=== PATIENT | female | born 1960 | race Caucasian/White ===

== ENCOUNTER 2017-11-13 07:16 | Emergency (ER) | payer SELFPAY ==
[~2017-11-13] VITALS: Ht 157.5 cm; Wt 111.2 kg
[2017-11-13 07:23] VITALS: Ht 157.5 cm; Wt 111.2 kg
[2017-11-13] MEDS ORDERED: HYDROCODONE/HOMATROPINE SYRUP 5MG/1.5MG 5ML UDP PO STA (07:52)
[2017-11-13] MEDS ORDERED: KETOROLAC TROMETHAMINE 30 MG/ML VIAL IV STA (07:52)
[2017-11-13] MEDS ORDERED: SODIUM CHLORIDE 0.9% 1000ML 1,000 ML IV STA (07:52)
[2017-11-13 08:33] LABS: BASO % 0.3 %; BASO ABS # 0.03 K/uL (0-0.2); HEMATOCRIT 44.6 % (37-47); HEMOGLOBIN 15.2 g/dL (12.0-16.0); IG# 0.01 K/uL (0.00-0.02); LYMPH % 10.7 %; MEAN CELL VOLUME 89.2 fL (80-100); MEAN CORPUSCULAR HEMOGLOBIN 30.4 pg (25-34); MEAN CORPUSCULAR HGB CONC 34.1 g/dl (32-36); MEAN PLATELET VOLUME 11.3 fL (7.4-10.4); MONO % 6.7 %; MONO ABS # 0.63 K/uL (0.11-0.59); NEUT % 82.2 %; PLATELET COUNT 156 K/uL (130-400); RED CELL DISTRIBUTION WIDTH CV 14.1 % (11.5-14.5); RED CELL DISTRIBUTION WIDTH SD 46.3 fL (36.4-46.3); WHITE BLOOD COUNT 9.37 K/uL (4.8-10.8)
--- NOTE | 2017-11-13 08:38 | DIAGNOSTIC IMAGING REPORT ---
CHEST 2 VIEWS ROUTINE CLINICAL HISTORY: Cough and fever. COMPARISON STUDY: No previous studies for comparison. FINDINGS: The lung volumes are normal. There is moderate airspace opacity within the posterior segment of the right upper lobe. No cavitation or pleural effusion is noted. There is mild diffuse interstitial thickening. There is no pneumothorax. A lucent lesion within the distal right clavicle is likely benign. Cardiac size is at the upper limits of normal. Mediastinal contours are unremarkable. IMPRESSION: Moderate consolidation within the posterior segment of the right upper lobe suggestive of pneumonia. Post treatment radiographs to ensure resolution are recommended. Electronically signed by: Cale Donovan M.D. 11/13/2017 8:37 AM Dictated Date/Time: 11/13/2017 8:36 AM
[2017-11-13 08:52] VITALS: TEMP 37.5
[2017-11-13 08:56] LABS: ALBUMIN 3.3 gm/dl (3.4-5.0); CALCIUM 9.3 mg/dl (8.5-10.1); CREATININE 1.4 mg/dl (0.60-1.20)
[2017-11-13 08:59] LABS: TOTAL PROTEIN 8.2 gm/dl (6.4-8.2)
[2017-11-13] MEDS ORDERED: AZITHROMYCIN 250 MG TAB PO ONE (09:00)
[2017-11-13] MEDS ORDERED: ALBUTEROL HFA 8 GM INHALER INH ONE (09:00)
[2017-11-13 09:25] LABS: POTASSIUM 3.8 mmol/L (3.5-5.1)
[2017-11-13] MEDS ORDERED: HYDR5SYP11 PO (09:54)
[2017-11-13] MEDS ORDERED: AZIT-60 PO (09:54)
--- NOTE | 2017-11-13 09:55 | EMERGENCY ROOM VISIT NOTE ---
History First contact with patient: 07:30 Chief Complaint: SORETHROAT Stated Complaint: SORE THROAT,EARS,RIBS,COUGH History of Present Illness Patient is a 57-year-old white female who presents to emergency department, he by her for evaluation of an illness over the last week and a half. She states she began to feel ill about a week and a half ago, and in the end of October. She states that it began with some nasal congestion and just generalized malaise. The symptoms persisted until this past week until 3-4 days ago, she developed diarrhea, which has subsequently tapered off. 2 days ago she began to experience ear pain and a sore throat. She has a cough and she has some soreness in her ribs from coughing. She has subjectively felt feverish and had chills but has not recorded her temperature with a thermometer. She states that her abdomen is sore, she is nauseous and anorexic. She has had dry heaves on occasion but has not vomited. She is tried taking Tylenol and NyQuil for her symptoms. She watches her grandchildren who have been sick and it had been diagnosed with strep throat recently. She presented to the emergency department this morning because of her ear and throat pain. She did not receive a flu shot this year. She is a smoker. Review of Systems Review of systems as per HPI. All other systems reviewed were negative. 10 systems reviewed. Past Medical/Surgical History Medical Problems: (1) Calculus Of Kidney (2) Hyperparathyroidism Surgical Problems: (1) History of parathyroidectomy Electronic medical records are reviewed and summarized as above/below. See Problem List. Social History Smoking Status: Current Every Day Smoker Marital Status: Housing Status: lives with family Occupation Status: unemployed Current/Historical Medications Scheduled Azithromycin (Zithromax), 250 MG PO DAILY Scheduled PRN Hydrocodone W/ Homatropine (Hycodan 5/1.5MG 5 Ml), 10 ML PO Q4H PRN for Cough Physical Exam Vital Signs Date Time Temp Pulse Resp B/P (MAP) Pulse Ox O2 Delivery O2 Flow Rate FiO2 11/13/17 10:28 67 20 99/56 90 11/13/17 09:01 85 20 104/65 90 Room Air 11/13/17 08:52 37.5 11/13/17 08:23 Room Air 11/13/17 07:23 37.6 94 20 124/71 92 Room Air Physical Exam MENTAL STATUS: Patient is an ill although nontoxic-appearing 57-year-old white female who is awake and alert and in no acute distress. Temperature 37.6C orally. HEAD: Atraumatic, without temporal or scalp tenderness. EYES: PERRL, EOMI, no discharge or injection. EARS: Tympanic membranes intact, not inflamed, have normal contour. External canals clear. Right ear partially obscured by cerumen. NOSE: Nares patent, turbinates edematous and boggy with clear rhinorrhea. MOUTH: Mucous membranes moist, no lesions, tongue and gums appear normal. THROAT: No pharyngeal injection, exudates, or tonsillar hypertrophy. She does have some shallow ulcerations on the soft palate. Airway is patent. NECK: No bruits auscultated. No nuchal rigidity. Supple, nontender, no lymphadenopathy. HEART: Regular rate and rhythm without murmurs, ectopy, gallops, or rubs. LUNGS: Clear to auscultation and breath sounds equal, no wheezes, rales, or rhonchi. ABDOMEN: Bowel sounds are present. Abdomen is soft, nontender and nondistended. SKIN: Normal. NEUROLOGICAL: Sensory and motor functions grossly intact. Normal gait. Medical Decision & Procedures ER Provider Diagnostic Interpretation: CHEST 2 VIEWS ROUTINE CLINICAL HISTORY: Cough and fever. COMPARISON STUDY: No previous studies for comparison. FINDINGS: The lung volumes are normal. There is moderate airspace opacity within the posterior segment of the right upper lobe. No cavitation or pleural effusion is noted. There is mild diffuse interstitial thickening. There is no pneumothorax. A lucent lesion within the distal right clavicle is likely benign. Cardiac size is at the upper limits of normal. Mediastinal contours are unremarkable. IMPRESSION: Moderate consolidation within the posterior segment of the right upper lobe suggestive of pneumonia. Post treatment radiographs to ensure resolution are recommended. Laboratory Results 11/13/17 08:20 Red Blood Count 5.00, Mean Corpuscular Volume 89.2, Mean Corpuscular Hemoglobin 30.4, Mean Corpuscular Hemoglobin Concent 34.1, Mean Platelet Volume 11.3, Neutrophils (%) (Auto) 82.2, Lymphocytes (%) (Auto) 10.7, Monocytes (%) (Auto) 6.7, Eosinophils (%) (Auto) 0.0, Basophils (%) (Auto) 0.3, Neutrophils # (Auto) 7.70, Lymphocytes # (Auto) 1.00, Monocytes # (Auto) 0.63, Eosinophils # (Auto) 0.00, Basophils # (Auto) 0.03 11/13/17 08:20 11/13/17 09:04 Test 11/13/17 08:20 11/13/17 09:04 White Blood Count 9.37 K/uL (4.8-10.8) Red Blood Count 5.00 M/uL (4.2-5.4) Hemoglobin 15.2 g/dL (12.0-16.0) Hematocrit 44.6 % (37-47) Mean Corpuscular Volume 89.2 fL (80-100) Mean Corpuscular Hemoglobin 30.4 pg (25-34) Mean Corpuscular Hemoglobin Concent 34.1 g/dl (32-36) Platelet Count 156 K/uL (130-400) Mean Platelet Volume 11.3 fL (7.4-10.4) Neutrophils (%) (Auto) 82.2 % Lymphocytes (%) (Auto) 10.7 % Monocytes (%) (Auto) 6.7 % Eosinophils (%) (Auto) 0.0 % Basophils (%) (Auto) 0.3 % Neutrophils # (Auto) 7.70 K/uL (1.4-6.5) Lymphocytes # (Auto) 1.00 K/uL (1.2-3.4) Monocytes # (Auto) 0.63 K/uL (0.11-0.59) Eosinophils # (Auto) 0.00 K/uL (0-0.5) Basophils # (Auto) 0.03 K/uL (0-0.2) RDW Standard Deviation 46.3 fL (36.4-46.3) RDW Coefficient of Variation 14.1 % (11.5-14.5) Immature Granulocyte % (Auto) 0.1 % Immature Granulocyte # (Auto) 0.01 K/uL (0.00-0.02) Anion Gap 6.0 mmol/L (3-11) Est Creatinine Clear Calc Drug Dose 53.4 ml/min Estimated GFR () 48.9 Estimated GFR (Non- 42.2 BUN/Creatinine Ratio 13.5 (10-20) Calcium Level 9.3 mg/dl (8.5-10.1) Total Bilirubin 0.6 mg/dl (0.2-1) Alanine Aminotransferase (ALT/SGPT) 38 U/L (12-78) Alkaline Phosphatase 99 U/L (45-117) Total Protein 8.2 gm/dl (6.4-8.2) Albumin 3.3 gm/dl (3.4-5.0) Globulin 4.9 gm/dl (2.5-4.0) Albumin/Globulin Ratio 0.7 (0.9-2) Aspartate Amino Transf (AST/SGOT) 23 U/L (15-37) Medications Administered Medications (Trade) Dose Ordered Sig/Uri Route Start Time Stop Time Status Last Admin Dose Admin Sodium Chloride 1,000 ml @ 999 mls/hr Q1H1M STAT IV 11/13/17 07:52 11/13/17 08:52 DC 11/13/17 08:15 999 MLS/HR Ketorolac Tromethamine (Toradol Inj) 30 mg NOW STAT IV 11/13/17 07:52 11/13/17 07:57 DC 11/13/17 08:14 30 MG Hydrocodone Bit/ Homatropine Methylb (Hycodan Syrup) 10 ml NOW STAT PO 11/13/17 07:52 11/13/17 07:57 DC 11/13/17 08:13 10 ML Albuterol (Ventolin Hfa Inhaler) 2 puffs NOW ONCE INH 11/13/17 09:00 11/13/17 09:01 DC 11/13/17 09:12 2 PUFFS Azithromycin (Zithromax Tab) 500 mg NOW ONCE PO 11/13/17 09:00 11/13/17 09:01 DC 11/13/17 09:12 500 MG ED Course The patient was seen and evaluated as above. She presents to the emergency department for evaluation of week and a half of upper respiratory symptoms that have been present restively worsening. She does have a low-grade fever on presentation, otherwise his vital signs are stable. She is not tachypneic, oxygen saturations are adequate on room air. IV lock was initiated. She was given a liter bolus of normal saline solution. Rapid strep was performed and was negative, backup cultures are pending. CBC with differential and CMP were drawn. She was given Toradol 30 mg IV for her headache and myalgias, as well as her low-grade fever, and was given Hycodan 10 mL's orally for her cough. Chest x-ray was performed. Laboratory studies noted a normal white count at 9300, H&H is normal. Electrolytes are without significant abnormality, BUN and creatinine slightly elevated at 19 and 1.4 respectively. LFTs are normal. Urine dip noted trace blood only, no other indicators for infection. Chest x-ray was obtained and was concerning for her minor consolidation within the right upper lobe suggestive of pneumonia. The patient was made aware of the results of her ED workup. She did report improvement in her headache with the IV fluids and Toradol, cough had improved with the Hycodan. Vital signs were rechecked, and temperature was 37.5C orally. The patient was given azithromycin 500 mg orally for pneumonia, and given an albuterol inhaler with a spacer and instructed on its use. Treatment options were discussed with the patient, and at this point it was felt that she was appropriate for outpatient treatment. She will continue her current medications, use the albuterol as discussed, Hycodan as needed for severe cough and will stay on the azithromycin. She was educated on the worrisome signs or symptoms for which she should return to the emergency department, and was advised to follow-up with her primary care provider for further care and evaluation. The patient was discharged home with her in stable condition. Differential diagnoses include viral illness including mononucleosis or influenza, strep versus viral pharyngitis, retropharyngeal or peritonsillar abscess, sinusitis, bronchitis, pneumonia, otitis media, among others. The patient does not have any physical exam findings consistent with meningitis or encephalitis. Medical Decision See ED Course. Medication Reconcilliation Current Medication List: was personally reviewed by or Blood Pressure Screening Patient's blood pressure: Normal blood pressure Blood pressure disposition: Did not require urgent referral Impression Primary Impression: Pneumonia Departure Information Prescriptions Hydrocodone W/ Homatropine (HYCODAN 5/1.5MG 5 ML) 1 Syp Syp 10 ML PO Q4H Y for Cough, #200 ML For Initial Treatment Prov: Natty Sanz PA 11/13/17 Azithromycin (ZITHROMAX) 250 Mg Tab 250 MG PO DAILY, #4 TAB Prov: Natty Sanz PA 11/13/17 Referrals Ash Brown M.D. (PCP) Patient Instructions My [facility] Additional Instructions DO NOT drive, drink alcohol, operate machinery, or perform dangerous activities today. You were given medications in the ER that can affect your ability to safely function or operate a vehicle. Azithromycin(Zithromax) 250mg: Take one a day for 4 additional days. All antibiotics can cause diarrhea. If this occurs and you feel worse or it does not resolve in 1- 2 days follow up with your doctor or return to the Emergency Department as this could be signs of serious underlying problems. Any medication can cause an allergic reaction, stop the pills immediately and return to the ER for rash, hives, breathing difficulties, or swelling. Albuterol Inhaler: Take 2 puffs four times daily for seven days, then as needed. Ibuprofen(Motrin, Advil) may be used for fever or pain. Use 600mg every six hours as needed. Take with food. Avoid using more than 2400mg in a 24 hour period. Do not use 2400mg per day for more than three consecutive days without physician direction. Prolonged inappropriate use can lead to stomach upset or ulcers. This is available over the counter and typically comes in 200mg tablets. (AND/OR) Acetaminophen(Tylenol) may be used for fever or pain. Use 1000mg every eight hours as needed. Avoid using more than 3000mg in a 24 hour period. This is available over the counter. Hycodan cough syrup: use 5-10 mL every six hours only as needed for severe cough. It is best for use at night since it will cause sedation. This is a narcotic medication. Avoid alcohol, operating machinery or dangerous equipment, working on ladders or roofs, DRIVING, important decision making, or situations where being under the influence may be dangerous. It is recommended to use an [id number] stool softener such as Colace, 100mg twice daily while taking this medication to avoid constipation. Read all the package inserts or medication information paperwork provided. If you have any questions or concerns call your primary provider, pharmacist or the ER for assistance. Controlling your fever with Tylenol and Ibuprofen as above will make you feel better. Rest and drink plenty of fluids. Avoid strenuous activity until your symptoms resolve and your breathing returns to normal. Continue current medications. Return to the ER for chest pain, difficulty breathing, persistent fevers, vomiting, worsening of your condition, or as needed Follow up with your primary care physician next week for recheck.
[2017-11-13 10:28] VITALS: BP 99/56; PULSE 67; O2SAT 90
== END 2017-11-13 10:30 | disposition home or self-care (01) ==
LOC: C.EDB 07:16 → C.EDA 10:30
DX: J18.9 Pneumonia, unspecified organism (principal); R19.7 Diarrhea, unspecified; E89.2 Postprocedural hypoparathyroidism; F17.200 Nicotine dependence, unspecified, uncomplicated; Z87.442 Personal history of urinary calculi

== ENCOUNTER → 2018-06-27 | Outpatient (CLI) | payer OTHER ==
[~2018-06-27] MED LIST: ACET-1256 PO
--- NOTE | 2018-06-27 16:44 | DIAGNOSTIC IMAGING REPORT ---
TWO VIEW CHEST CLINICAL HISTORY: Cough. FINDINGS: PA and lateral chest radiographs are compared to study dated 11/13/2017. The heart is top normal for projection. The mediastinal contour is within normal limits. Chronic interstitial thickening is similar to previous. No airspace consolidation or pleural effusion is identified. There is no pneumothorax. The skeletal structures are osteopenic. The bony thorax appears intact. IMPRESSION: No active disease in the chest. Electronically signed by: Andrea Naik M.D. 06/27/2018 4:43 PM Dictated Date/Time: 06/27/2018 4:42 PM
== END | disposition home or self-care (01) ==
LOC: C.RAD1850 16:11
PROVIDERS: ATTEND Internal Medicine
DX: R05 Cough (principal)

== ENCOUNTER 2022-08-20 01:09 | Observation (INO) ==
[2022-08-20] MEDS ORDERED: ONDANSETRON INJ 2 MG/ML 2 ML VIAL IV STA ×2 (01:31→04:01)
[2022-08-20] MEDS ORDERED: MoRPHine SULFATE 4 MG/ML 1 ML CARP\\VIAL IV PRN ×2 (01:31→04:17)
[2022-08-20] MEDS ORDERED: SODIUM CHLORIDE 0.9% 1000ML 1,000 ML IV SCH (01:45)
--- NOTE | 2022-08-20 01:56 | Emergency Department Note ---
History of Present Illness General Chief complaint: Flank Pain Stated complaint: RT SIDE PAIN AND BACK PAIN Time Seen by Provider: 08/20/22 01:24 History of Present Illness Maximum Pain Intensity: 8 This is a 62-year-old female presenting to the emergency department for evaluation of right-sided abdominal pain for the past 3 hours. The patient states that she had [place] fries and a buffalo chicken wrap for dinner tonight, and almost immediately afterwards began having pain. She is also reporting some pain in her right side back. She has not had fevers or chills. She is nauseated with vomiting. She does not have a history of abdominal surgery. She has had several previous episodes like this in the past. She states that she did have her gallbladder checked at 1 point, and it was normal. She does have a history of kidney stones but this does not distinctly feel like that. She did try [id number] Tums without improvement of symptoms. She rates her current pain an 8/10. Home Medications Medication Instructions Recorded Confirmed Type Acetaminophen (Tylenol) 1,000 mg PO PRN #0 tabs 06/22/18 History Allergies Allergy/AdvReac Type Severity Reaction Status Date / Time No Known Allergies Allergy Unknown Verified 07/03/18 06:56 Past Med/Surg History Medical History No chronic diseases present Surgical History No significant past surgical history Social History Smoking Status: Current every day smoker Feels Safe at Home: Yes Review of Systems A total of 10 systems reviewed and were otherwise negative Physical Exam Vital Signs Vital Signs - 24 hr 08/20/22 01:19 08/20/22 01:53 08/20/22 03:28 Temperature 36.8 C Temperature Source Temporal Artery Scan Pulse Rate 75 Pulse Rate [Apical] 78 75 Respiratory Rate 18 16 14 Respiratory Effort / Characteristics Non-Labored Spontaneous Non-Labored Spontaneous Non-Labored Spontaneous Respiratory Depth Normal Normal Normal Respiratory Pattern Regular Regular Blood Pressure 170/69 H Blood Pressure [Left Arm] 136/81 126/79 Blood Pressure Mean 102 Blood Pressure Mean [Left Arm] 99 94 Pulse Oximetry 96 96 96 Oxygen Delivery Method Room Air Room Air Room Air Sepsis Recent Fever Within 48 Hours No Sepsis New/Unexplained Change in Mental Status No Sepsis Action Taken by Nursing No Action Required VITALS: Vitals are noted on the nurse's note and reviewed by myself. Vital signs stable. GENERAL: Well-developed, well-nourished, white female who is moderately uncomfortable secondary to her stated complaint. NECK: Supple without nuchal rigidity. No lymphadenopathy. No thyromegaly. Cervical spine is nontender. HEART: Regular rate and rhythm without murmurs gallops or rubs. LUNGS: Clear to auscultation bilaterally without wheezes, rales or rhonchi. No retractions or accessory muscle use. ABDOMEN: Positive normal bowel sounds x 4. Soft with mild upper abdominal tenderness on palpation. No rebound or guarding. Tenderness does seem worse in the right upper quadrant. No CVA tenderness. Course Administered Medications Acetaminophen (Ofirmev) 1,000 mg in 100 mls @ 400 mls/hr IV Q8H PRN PRN Reason: Pain Stop: 08/23/22 04:16 Last Admin: 08/20/22 05:13 Dose: 400 mls/hr Documented By: MED Morphine Sulfate (Morphine Sulfate 4 Mg/Ml 1 Ml Carp\Vial) 4 mg IV Q30M PRN PRN Reason: Pain Stop: 09/03/22 01:30 Last Admin: 08/20/22 01:43 Dose: 4 mg Documented By: MED Discontinued Medications Sodium Chloride (Nss 1000ml) 1,000 mls @ 999 mls/hr IV .Q1H1M ISAIAH Stop: 08/20/22 02:45 Last Infusion: 08/20/22 03:37 Dose: 0 mls/hr Documented By: compensation administrator: 08/20/22 01:42 Dose: 999 mls/hr Documented By: MED Cefoxitin Sodium (Mefoxin) 2,000 mg in 60 mls @ 100 mls/hr IV NOW STA Stop: 08/20/22 04:52 Last Admin: 08/20/22 04:35 Dose: 100 mls/hr Documented By: MED Ondansetron HCl (Ondansetron Inj 2 Mg/Ml 2 Ml Vial) 4 mg IV NOW STA Stop: 08/20/22 01:32 Last Admin: 08/20/22 01:43 Dose: 4 mg Documented By: MED Ondansetron HCl (Ondansetron Inj 2 Mg/Ml 2 Ml Vial) Confirm Administered Dose 4 mg .ROUTE .STK-MED ONE Stop: 08/20/22 03:56 Last Admin: 08/20/22 04:03 Dose: Not Given Documented By: CC Ondansetron HCl (Ondansetron Inj 2 Mg/Ml 2 Ml Vial) 4 mg IV NOW STA Stop: 08/20/22 04:02 Last Admin: 08/20/22 04:03 Dose: 4 mg Documented By: CC Medical Decision Making Differential Diagnosis Differential diagnosis: Etiologies such as biliary colic, cholecystitis, hepatitis, pancreatitis, cardiac disease, pancreatitis, gastritis, peptic ulcer disease, appendicitis, cystitis, diverticulitis, mesenteric ischemia, inflammatory bowel disease, ileus, bowel obstruction, testicular/adnexal torsion, aortic pathology, s hingles, as well as others were considered Laboratory Data Result diagrams: 08/20/22 01:47 08/20/22 01:47 Lab Results 08/20/22 08/20/22 08/20/22 Range/Units 01:47 01:47 01:57 WBC 8.86 (4.8-10.8) K/ul RBC 5.06 (3.93-5.22) M/uL Hgb 15.4 (12.0-16.0) g/dl Hct 44.7 (34.1-44.9) % MCV 88.3 (80.0-100.0) fL MCH 30.4 (25.0-34.0) pg MCHC 34.5 (32.0-36.0) g/dL RDW Std Deviation 44.4 (36.4-46.3) fL RDW Coeff of Danielle 13.8 (11.5-14.5) % Plt Count 196 (130-400) K/uL MPV 11.6 (9.4-12.3) fL Immature Gran % (Auto) 0.3 % Neut % (Auto) 67.4 % Lymph % (Auto) 23.7 % [place] % (Auto) 6.2 % Eos % (Auto) 1.6 % Baso % (Auto) 0.8 % Neut # (Auto) 5.97 (1.4-6.5) K/uL Lymph # (Auto) 2.10 (1.2-3.4) K/uL [place] # (Auto) 0.55 (0.24-0.82) K/uL Eos # (Auto) 0.14 (0-0.50) K/uL Baso # (Auto) 0.07 (0-0.2) K/uL Immature Gran # (Auto) 0.03 H (0.00-0.02) K/uL Sodium 140 (136-145) mmol/L Potassium 3.8 (3.5-5.1) mmol/L Chloride 104 (98-107) mmol/L Carbon Dioxide 31 (21-32) mmol/L Anion Gap 5 (3-11) BUN 18 (6-23) mg/dl Creatinine 1.21 H (0.6-1.2) mg/dl Est Cr Clr Drug Dosing 58.0 ml/min Est GFR ( Amer) 56.3 ml/min Est GFR (Non-Af Amer) 48.6 ml/min BUN/Creatinine Ratio 14.9 (10-20) Glucose 124 H (70-99(Fasting)) mg/dl Calcium 10.1 (8.5-10.1) mg/dl Total Bilirubin 0.3 (0.2-1.0) mg/dl AST 12 L (13-39) U/L ALT 14 (7-52) U/L Alkaline Phosphatase 94 (34-104) U/L Total Protein 7.1 (6.0-8.3) gm/dl Albumin 4.1 (3.4-5.0) gm/dl Globulin 3.0 (2.5-4.0) gm/dl Albumin/Globulin Ratio 1.4 (0.9-2) Lipase 36 (11-82) U/L Urine Color Urine Appearance (Clear) Urine pH (4.5-7.5) Ur Specific [place] (1.000-1.030) Urine Protein (Negative) Urine Glucose (UA) (Negative) Urine Ketones (Negative) Urine Blood (Negative) Urine Nitrite (Negative) Urine Bilirubin (Negative) Urine Urobilinogen (Negative) Ur Leukocyte Esterase (Negative) Urine WBC (Auto) (0-5) /hpf Urine RBC (Auto) (0-4) /hpf U Hyaline Cast (Auto) (0-5) /lpf U Epithel Cells (Auto) (0-5) /lpf Urine Bacteria (Auto) (Negative) SARS-CoV-2, RNA, NAAT NEGATIVE (NEGATIVE) 08/20/22 Range/Units 03:23 WBC (4.8-10.8) K/ul RBC (3.93-5.22) M/uL Hgb (12.0-16.0) g/dl Hct (34.1-44.9) % MCV (80.0-100.0) fL MCH (25.0-34.0) pg MCHC (32.0-36.0) g/dL RDW Std Deviation (36.4-46.3) fL RDW Coeff of Danielle (11.5-14.5) % Plt Count (130-400) K/uL MPV (9.4-12.3) fL Immature Gran % (Auto) % Neut % (Auto) % Lymph % (Auto) % [place] % (Auto) % Eos % (Auto) % Baso % (Auto) % Neut # (Auto) (1.4-6.5) K/uL Lymph # (Auto) (1.2-3.4) K/uL [place] # (Auto) (0.24-0.82) K/uL Eos # (Auto) (0-0.50) K/uL Baso # (Auto) (0-0.2) K/uL Immature Gran # (Auto) (0.00-0.02) K/uL Sodium (136-145) mmol/L Potassium (3.5-5.1) mmol/L Chloride (98-107) mmol/L Carbon Dioxide (21-32) mmol/L Anion Gap (3-11) BUN (6-23) mg/dl Creatinine (0.6-1.2) mg/dl Est Cr Clr Drug Dosing ml/min Est GFR ( Amer) ml/min Est GFR (Non-Af Amer) ml/min BUN/Creatinine Ratio (10-20) Glucose (70-99(Fasting)) mg/dl Calcium (8.5-10.1) mg/dl Total Bilirubin (0.2-1.0) mg/dl AST (13-39) U/L ALT (7-52) U/L Alkaline Phosphatase (34-104) U/L Total Protein (6.0-8.3) gm/dl Albumin (3.4-5.0) gm/dl Globulin (2.5-4.0) gm/dl Albumin/Globulin Ratio (0.9-2) Lipase (11-82) U/L Urine Color Yellow Urine Appearance Cloudy A (Clear) Urine pH 6.0 (4.5-7.5) Ur Specific [place] 1.016 (1.000-1.030) Urine Protein Negative (Negative) Urine Glucose (UA) Negative (Negative) Urine Ketones Negative (Negative) Urine Blood 1+ H (Negative) Urine Nitrite Positive A (Negative) Urine Bilirubin Negative (Negative) Urine Urobilinogen Negative (Negative) Ur Leukocyte Esterase 3+ H (Negative) Urine WBC (Auto) >30 H (0-5) /hpf Urine RBC (Auto) 0-4 (0-4) /hpf U Hyaline Cast (Auto) 1-5 (0-5) /lpf U Epithel Cells (Auto) 5-10 H (0-5) /lpf Urine Bacteria (Auto) 4+ H (Negative) SARS-CoV-2, RNA, NAAT (NEGATIVE) Imaging Data Radiologist's Impression: Preliminary Findings Only See Final Report For Complete Findings US RUQ: EXAM LIMITED DUE TO INCREASED BODY HABITUS, BMI 44 Pancreas: Incompletely visualized. Increased echogenicity Liver: Enlarged measuring 20 cm. Increased overall echogenicity. Gallbladder: Wall thickness 3 mm. Length 12.1 cm. 1.9 cm stone at the neck which does not move with positioning differences. No pericholecystic fluid. , Common bile duct: 2.8 mm. Right kidney: No hydronephrosis. Atrophic measuring 8.7 X 3.7 X 4.5 cm. Scarring. Impression: Possible pancreatitis. Hydropic gallbladder with an impacted stone at the neck. Hepatic steatosis. Scarred atrophic right kidney Radiologist:Giovani Dhaliwal MD [facility] Narrative Physical exam and history were performed. Nursing notes, EMR, and Medication List were personally reviewed. Patient appears to have right-sided abdominal pain for the past 3 hours. Her symptoms seem to have started after eating [place] fries and a buffalo chicken wrap today. She does have some tenderness in the right side abdomen that does seem worse in the right upper quadrant. IV access was established and labs were obtained. She was hydrated normal saline and given IV morphine and IV Zofran for comfort. She was sent to ultrasound for further evaluation. Patient's blood work is as above and was reviewed. She does not have a significantly elevated white blood cell count, gross anemia, bandemia, or significant electrolyte imbalance. Lipase and transaminases are not diagnostic. Ultrasound is concerning as it does show a large impacted and nonmobile gallstone. This certainly would correlate with the patient's symptoms. I did discuss the case with the on-call surgical team, and patient was evaluated at bedside by Rogers Lindsay PA-C. Please see the surgical team dictation for further patient course, plan, and patient disposition. The chart was completed utilizing [employer] (powering [employer]) Speech Voice Recognition Software. Grammatical errors, random word insertions, pronoun errors, and incomplete sentences are an occasional consequence of this system due to software limitations, ambient noise, and hardware issues. Any formal questions or concerns about the content, text, or information contained within the body of this dictation should be directly addressed to the provider for clarification. . Impression & Plan Cholelithiasis, Impacted gallstone of gallbladder, Abdominal pain, RUQ Discharge Plan Visit Data Chief Complaint: Flank Pain Stated Complaint: RT SIDE PAIN AND BACK PAIN ED Provider: [facility] Midlevel Provider: Rafal Angulo Discharge Problem: Cholelithiasis, Impacted gallstone of gallbladder, Abdominal pain, RUQ Patient Disposition: Being Evaluated by Surgeon Forms Stand Alone Forms: My [employer] Prescriptions Prescriptions: No Action Acetaminophen (Tylenol) 500 MG tablet 1,000 mg PO PRN Qty: 0 Referrals Referrals: Ash Brown III, MD [Primary Care Provider] -
[2022-08-20 01:59] LABS: Basophils # (auto) 0.07 K/uL (0-0.2); Basophils % (auto) 0.8 %; Eosinophils # (auto) 0.14 K/uL (0-0.50); Eosinophils % (auto) 1.6 %; Hematocrit (blood only) 44.7 % (34.1-44.9); Hemoglobin 15.4 g/dl (12.0-16.0); Immature Granulocytes # (auto) 0.03 K/uL (0.00-0.02); Immature Granulocytes % (auto) 0.3 %; Lymphocytes % (auto) 23.7 %; Mean Corpuscular Hemoglobin 30.4 pg (25.0-34.0); Mean Corpuscular Hgb Conc 34.5 g/dL (32.0-36.0); Mean Corpuscular Volume 88.3 fL (80.0-100.0); Mean Platelet Volume 11.6 fL (9.4-12.3); Monocytes # (auto) 0.55 K/uL (0.24-0.82); Monocytes % (auto) 6.2 %; Neutrophils # (auto) 5.97 K/uL (1.4-6.5); Neutrophils % (auto) 67.4 %; Platelet Count 196 K/uL (130-400); RDW Coefficient of Variation 13.8 % (11.5-14.5); RDW Standard Deviation 44.4 fL (36.4-46.3); Red Blood Count 5.06 M/uL (3.93-5.22); White Blood Count 8.86 K/ul (4.8-10.8)
[2022-08-20 02:22] LABS: Albumin Globulin Ratio 1.4 (0.9-2); Albumin Level 4.1 gm/dl (3.4-5.0); BUN Creatinine Ratio 14.9 (10-20); Bilirubin,Total 0.3 mg/dl (0.2-1.0); Calcium 10.1 mg/dl (8.5-10.1); Est GFR (African American) 56.3 ml/min; Est GFR (Non-African American) 48.6 ml/min; Potassium 3.8 mmol/L (3.5-5.1); Total Protein 7.1 gm/dl (6.0-8.3)
[2022-08-20 03:37] LABS: Appearance Urine Cloudy (Clear); Bacteria Urine Automated 4+ (Negative); Bilirubin Urine Negative (Negative); Blood Urine 1+ (Negative); Color Urine Yellow; Glucose Urine UA Negative (Negative); Ketones Urine Negative (Negative); Leukocyte Esterase Urine 3+ (Negative); Nitrite Urine Positive (Negative); Protein Urine Negative (Negative); RBC Urine Automated 0-4 /hpf (0-4); Specific Gravity Urine 1.016 (1.000-1.030); Urobilinogen Urine Negative (Negative); WBC Urine Automated >30 /hpf (0-5)
[2022-08-20] MEDS: ONDANSETRON INJ 2 MG/ML 2 ML VIAL ONE ×2 (03:57→04:03)
--- NOTE | 2022-08-20 04:03 | History & Physical Report ---
Date of Service August 20, 2022 Assessment & Plan (1) Cholelithiasis: Plan: Due to the patient's clinical presentation and findings on ultrasound we will admit her to the hospital proceeding as follows: Analgesics will be provided Antiemetics will be provided We administer antibiotics. We will utilize cefoxitin. We will implement n.p.o. status We will hydrate her with IV fluids I suspect the patient's pain may be related to Becky lithiasis as she is noted to have an impacted gallstone in her gallbladder neck. We will therefore tentatively plan on proceeding with cholecystectomy on 08/20/[address] Medrano. I have outlined the risks, benefits, alternatives, and expected postop course with patient and she wishes to proceed Additional recommendations will be made based on operative findings and her postoperative course We will utilize SCDs for DVT prevention, no chemical means due to planned surgery She will be a level 1 full code History of Present Illness Chief Complaint: Abdominal pain Primary Care Provider: Ash Brown MD This is a 62-year-old female who presented to [facility] emergency department secondary to abdominal pain. The patient notes that for approximately 2 months she has been having on and off abdominal pain that usually occurs several hours after eating a meal. She says it usually occurs in the evening after she goes to bed. She notes that the pain is usually located in the right upper quadrant but usually self resolves. Last evening the patient ate some Sinhala fries and a chicken wrap and developed that the same type of abdominal pain described above. She does note however that this time the pain did not self resolve and was much worse. She had associated nausea and vomiting. She denied any fevers, shakes, or chills. She does note that she has had abdominal surgeries in the form of a tubal ligation but no other prior abdominal surgeries. With her current pain she does not note any radiation of the pain she also does not note any modifying factors. In the emergency department the patient had labs and imaging which I independently reviewed. A gallbladder ultrasound was performed that showed patient had a hydropic gallbladder with a gallstone impacted in the gallbladder neck. There is no gallbladder wall thickening or pericholecystic fluid. Labs including CBC were white blood cell count, hemoglobin, hematocrit, platelet count were all normal. Chemistry profile showed sodium and potassium are normal. BUN was also normal but creatinine had a slight elevation at 1.21. Total bilirubin, transaminases, alkaline phosphatase, and lipase were all not elevated. Urinalysis did have positive nitrites and 3+ leukocyte Estrace and greater than 30 white blood cells per high-power field. There is 4+ bacteria on the study. A COVID test was negative. A chest x-ray was performed that showed no evidence of pneumothorax or pneumonia. An EKG was performed that showed normal sinus rhythm without changes indicative of acute ischemia. Concerning past medical history the patient denies any medical problems. She notes that she does not take any medicines and does not have any allergies. The patient does note that she is a current smoker. She says that she can walk up and down 1 flight of steps without any chest pain or shortness of breath. At the time of my interview the patient was resting comfortably in bed and she was in no distress. Allergies Allergy/AdvReac Type Severity Reaction Status Date / Time No Known Allergies Allergy Unknown Verified 08/20/22 12:17 Home Medications Medication Instructions Recorded Confirmed Type Acetaminophen (Tylenol) 1,000 mg PO PRN #0 tabs 06/22/18 History Past Med/Surg History Medical History (Updated 08/20/22 @ 05:39 by Rafal Angulo PA-C) No chronic diseases present Surgical History (Updated 08/20/22 @ 12:27 by Sana Sanchez RN) History of parathyroid surgery History of tubal ligation Social History Smoking Status: Current every day smoker Cigarettes Per Day: pack a day; Second Hand Exposure: No; Do You Dip or Chew Tobacco: No; Tobacco Cessation Education Requested by Patient: No Hx Alcohol Use: No Hx Substance Use: No Preferred Language: Puerto Rican Communication Ability: Effective Video Game Developer Required: No Beliefs That Will Affect Care: None Current Living Situation: Spouse Other Information That Helps Us Care for You: No Feels Safe at Home: Yes Safety Concerns: Feels Safe At This Time Assistive Devices: None Review of Systems Constitutional: no fever and no chills Eyes: no eye pain Ear, Nose, Mouth, Throat: no ear pain Respiratory: no cough and no dyspnea Cardiovascular: no chest pain Gastrointestinal: as per Subjective / HPI, + abdominal pain, + nausea and + vomiting Genitourinary: no dysuria Musculoskeletal: no back pain Integumentary: no rash Neurologic: no localized weakness Physical Exam Constitutional: well developed and well nourished; no acute distress Eyes: + anicteric sclerae ENMT: Ears: no hearing impairment and no external ear abnormality Sublingual jaundice is absent Neck: trachea midline Respiratory: normal respiratory effort, lungs clear to auscultation Cardiovascular: Rate/Rhythm: regular rate and regular rhythm Gastrointestinal (Abdomen): Abdomen is rotund and soft. It is nonrigid and nondistended. There is no rebound tenderness or guarding. The patient did have pain with palpation on the right side of her abdomen greatest in the right upper quadrant. Musculoskeletal: No calf tenderness Skin: no rashes Neurologic: moves all extremities Psychiatric: A+Ox3, euthymic affect Results & Data Results & Data ([facility]) Vital Signs (Past 12 Hours) Vital Signs Temp Pulse Pulse Resp BP BP Pulse Ox 08/20/22 03:28 75 14 126/79 96 08/20/22 01:53 78 16 136/81 96 08/20/22 01:19 36.8 C 75 18 170/69 H 96 O2 Del Method 08/20/22 03:28 Room Air 08/20/22 01:53 Room Air 08/20/22 01:19 Room Air Supervising Physician Co-Signing Physician Notes Patient seen and examined, labs and image reviewed, agree with above. 62-year-old female presented with postprandial right upper quadrant pain is been worsening over the past few weeks. On exam she is afebrile stable vitals. Tender to palpation in the right upper quadrant though her pain is slightly improved from overnight. Labs unremarkable. Ultrasound showed mobile gallstone in the neck with a distended gallbladder which could represent cholecystitis. After discussion with the patient she elected for laparoscopic cholecystectomy. plan for laparoscopic cholecystectomy with possible cholangiogram risks discussed to include but not limited to bleeding, infection, retained stone, bile leak, open surgery, damage to surrounding structures including bile duct, need for future or more extensive surgery, failure to treat symptoms, and risks of anesthesia. Potential discharge this afternoon versus tomorrow Wound care instructions and activity striction's reviewed, return precautions given PG Care Time/CCT Total # of Minutes Spent Total Time Spent with Patient: Total time spent is greater than 50% in coordination of care (as documented) at patient's floor/unit and/or counseling patient: Coding Level of Care Code 16026 Initial Inpt Care Lvl 3 Diagnoses Cholelithiasis K80.20
[2022-08-20] MEDS ORDERED: cefOXitin 2,000 MG/60 ML BAG IV STA (04:17)
[2022-08-20] MEDS ORDERED: ONDANSETRON INJ 2 MG/ML 2 ML VIAL IV PRN ×2 (04:17→14:29)
[2022-08-20] MEDS: ACETAMINOPHEN 1,000 MG/100 ML VIAL IV PRN ×2 (05:13→22:15)
[2022-08-20] MEDS: LACTATED RINGER'S 1,000 ML IV SCH ×3 (05:13→22:11)
--- NOTE | 2022-08-20 07:01 | Ultrasound Report ---
US gallbladder CLINICAL HISTORY: RUQ pain after eating COMPARISON STUDY: No previous studies for comparison. FINDINGS: Hepatic echogenicity is increased. No hepatic lesions are identified. There is no biliary d uctal dilatation. This exam is compromised by suboptimal penetration. There is an immobile stone with in the gallbladder neck. The gallbladder is distended. Mild gallbladder wall thickening is present. T here is no pericholecystic fluid. Sonographic Colón sign could not be assessed. Pancreatic body is n ormal. Head and tail are partially obscured. There is no right hydronephrosis. Right kidney is partia lly obscured and appears moderately atrophic. IMPRESSION: 1. Cholelithiasis with a mobile gallstone within the gallbladder neck. Distended gallbladder with mil d gallbladder wall thickening. Acute cholecystitis cannot be excluded. A hepatobiliary scan could be obtained as indicated. 2. No biliary ductal dilatation. 3. Partially obscured pancreas. 4. Hepatic steatosis. ACT 112: Negative or not required by law. Electronically signed by: Cale Donovan M.D. 08/20/2022 7:00 AM
--- NOTE | 2022-08-20 07:17 | XRay Report ---
XR chest 1V portable CLINICAL HISTORY: Preoperative evaluation. COMPARISON STUDY: Chest radiograph August 12, 2018. FINDINGS: Lung volumes are normal. Lungs are clear. There is no pneumothorax or pleural effusion. Car diac size is at the upper limits of normal. Mediastinal contours are normal. There is no evidence for pulmonary edema. IMPRESSION: No acute cardiopulmonary findings. No change in appearance of the chest. ACT 112: Negative or not required by law. Electronically signed by: Cale Donovan M.D. 08/20/2022 7:16 AM
[2022-08-20] MEDS ORDERED: cefOXitin 2,000 MG in DEXTROSE 5% 50 ML IV SCH (07:33)
[2022-08-20] MEDS: cefOXitin 2,000 MG in DEXTROSE 5% 50 ML IV SCH ×3 (11:14→22:08)
[2022-08-20] MEDS ORDERED: MIDAZOLAM HCL 1 MG/ML 2ML VIAL ONE (12:36)
[2022-08-20] MEDS ORDERED: fentaNYL citrate 100 MCG/2 ML VIAL ONE (12:36)
[2022-08-20] MEDS ORDERED: PROPOFOL IV EMULSION 10 MG/ML 20 ML VIAL IV ONE (12:37)
[2022-08-20] MEDS ORDERED: LIDOCAINE 2% MPF LOCAL 5 ML VIAL INFIL ONE (12:37)
[2022-08-20] MEDS ORDERED: ROCURONIUM BROMIDE 10 MG/ML 5 ML VIAL IV ONE (12:37)
--- NOTE | 2022-08-20 12:56 | Anesthesiology Consultation ---
Date of Service August 20, 2022 Assessment & Plan Chart Review Chart Review: Acceptable Risk for Surgery and Patient NOT seen in Pre Admission Testing Consults Requested none ASA ASA3 Proposed Anesthesia Anesthesia Type: General Risk / Benefits Reviewed With: PT / POA / Parent / Guardian, Accepts Plan and Informed Consent Obtained History Surgery Operation Date: 08/20/22 11:55 Proposed Procedures p Laparoscopic Cholecystectomy - Giovani Medrano, DO, FACS Height/Weight Height: 5 ft 2 in Weight: 110.5 kg Allergies Allergy/AdvReac Type Severity Reaction Status Date / Time No Known Allergies Allergy Unknown Verified 08/20/22 12:17 Medications Home Medications Medication Instructions Recorded Confirmed Last Taken Acetaminophen (Tylenol) 1,000 mg PO PRN #0 tabs 06/22/18 Unknown Active Medications Generic Name Dose Route Start Last Admin Trade Name Freq PRN Reason Stop Dose Admin Lactated Ringer's 1,000 mls @ 100 mls/hr 08/20/22 04:30 08/20/22 05:13 Lr IV 09/19/22 04:29 100 mls/hr .Q10H ISAIAH Administration Acetaminophen 1,000 mg in 100 mls @ 400 mls/hr 08/20/22 04:17 08/20/22 05:57 Ofirmev IV 08/23/22 04:16 Infused Q8H PRN Infusion Pain Cefoxitin Sodium 2,000 mg/ 60 mls @ 100 mls/hr 08/20/22 10:00 08/20/22 12:13 Dextrose IV 08/30/22 09:59 Infused Q6H ISAIAH Infusion NPO Date Last Intake of Fluids: 08/19/22 Time Last Intake of Fluids: 23:30 Date Last Intake of Solids: 08/19/22 Time Last Intake of Solids: 18:30 Past Medical History Medical History No chronic diseases present Exercise / Class Metabolic Activity II 4-5 Yardwork/Stairs/Walk up hill Past Surgical History Surgical History History of parathyroid surgery History of tubal ligation Past Anesthesia History No Hx of Anesthesia Complications and No Family Hx of Anesthesia Complications History of PONV No Hx of PONV and No Hx of Motion Sickness Social History Smoking Status: Current every day smoker tobacco type: cigarettes Smoking cigarettes per day: pack a day Do You Dip or Chew Tobacco: No Hx Alcohol Use: No Hx Substance Use: No Physical Exam Vital Signs Last Vital Signs Temp 36.6 C 08/20/22 12:17 Pulse 98 H 08/20/22 12:17 Resp 20 08/20/22 12:17 BP 125/84 08/20/22 12:17 Pulse Ox 95 08/20/22 12:17 O2 Del Method 08/20/22 12:17 Constitutional + morbidly obese ENMT Mouth: no dentition abnormality Thyromental Distance: < 3.5 Finger Breadths Mallampati Class: II Neck normal visual inspection and trachea midline; neck extension not limited Respiratory normal respiratory effort Auscultation: lungs clear to auscultation bilaterally Cardiovascular Rate/Rhythm: regular rate and regular rhythm Heart Sounds: no murmur Vessels: no carotid bruit Musculoskeletal Spine: normal cervical ROM Extremities: full ROM of extremities Neurologic moves all extremities Motor/Sensory: no sensory deficit Psychiatric Orientation: alert and oriented x 3 Testing Laboratory Results 08/20/22 01:47 08/20/22 01:47 Urine Color Yellow 08/20/22 03:23 Urine Appearance Cloudy (Clear) A 08/20/22 03:23 Urine pH 6.0 (4.5-7.5) 08/20/22 03:23 Ur Specific [place] 1.016 (1.000-1.030) 08/20/22 03:23 Urine Protein Negative (Negative) 08/20/22 03:23 Urine Glucose (UA) Negative (Negative) 08/20/22 03:23 Urine Ketones Negative (Negative) 08/20/22 03:23 Urine Nitrite Positive (Negative) A 08/20/22 03:23 Ur Leukocyte Esterase 3+ (Negative) H 08/20/22 03:23 Urine WBC (Auto) >30 /hpf (0-5) H 08/20/22 03:23 Urine RBC (Auto) 0-4 /hpf (0-4) 08/20/22 03:23 U Hyaline Cast (Auto) 1-5 /lpf (0-5) 08/20/22 03:23 U Epithel Cells (Auto) 5-10 /lpf (0-5) H 08/20/22 03:23 Urine Bacteria (Auto) 4+ (Negative) H 08/20/22 03:23 Electrocardiogram Date: 08/20/22 Findings: + NSR @ (at 66) Chest X-Ray Date: 08/20/22 Findings: + NAD
[2022-08-20] MEDS ORDERED: BUPIVACAINE 0.5 % 5 MG/1 ML MPF 30ML VIAL ONE (13:22)
[2022-08-20] MEDS ORDERED: ONDANSETRON INJ 2 MG/ML 2 ML VIAL ONE (14:15)
[2022-08-20] MEDS ORDERED: KETOROLAC 30 MG/ML VIAL ONE (14:15)
[2022-08-20] MEDS ORDERED: DEXAMETHASONE SOD INJ 4 MG/ML VIAL ONE (14:15)
[2022-08-20] MEDS ORDERED: GLYCOPYRROLATE 0.2 MG/ML VIAL ONE (14:15)
[2022-08-20] MEDS ORDERED: NEOSTIGMINE METHYLSULFATE 1 MG/ML 10ML VIAL ONE (14:15)
[2022-08-20] MEDS ORDERED: NALOXONE HCL 0.4 MG/1 ML VIAL/CARP IV PRN (14:29)
[2022-08-20] MEDS ORDERED: LABETALOL HCL IV 5 MG/ML 20ML IV PRN (14:29)
[2022-08-20] MEDS ORDERED: ePHEDrine sulfate 50 MG/ML AMP IV PRN (14:29)
[2022-08-20] MEDS ORDERED: PROMETHAZINE HCL 12.5 MG in SODIUM CHLORIDE 0.9% 50 ML IV PRN (14:29)
[2022-08-20] MEDS ORDERED: FLUMAZENIL 0.1 MG/1 ML 10 ML VIAL IV PRN (14:29)
[2022-08-20] MEDS ORDERED: ATROPINE SULFATE 0.1 MG/ML 10ML SYR IV PRN (14:29)
[2022-08-20] MEDS ORDERED: HYDROmorphone INJ 1 MG/ML SYRINGE IV PRN (14:29)
--- NOTE | 2022-08-20 14:50 | Operative Report ---
PG Post Operative Report Pre & Post Diagnosis Operation Date: 08/20/22 11:55 Pre-Op Diagnosis: Cholecystitis and Cholelithiasis Post-Op Diagnosis: Cholecystitis, Cholelithiasis and Empyema I identified the patient and participated in the time-out.: Yes Procedure Operation Date: 08/20/22 11:55 Actual Procedures p Laparoscopic Cholecystectomy - Giovani Medrano DO, FACS Surgeon Giovani Medrano DO, FACS Automation Specialist None Estimated Blood Loss 15 Findings Consistent with Post-Op Diagnosis Distended and acutely inflamed gallbladder. Critical view of safety obtained, cystic duct and artery doubly clipped and divided. Posterior branch of the artery clipped. Gallbladder decompressed during extraction while still in the bag and showed empyema. Specimens Gallbladder Anesthesia Type General Complications none Disposition Accompanied Patient To Recovery: No Disposition: Recovery Room Indications 62-year-old female presented with signs symptoms of acute cholecystitis, plan for laparoscopic cholecystectomy with possible cholangiogram. The risks of the procedure were discussed, all questions were answered, and the patient agreed to proceed with surgery as planned. Description of Procedure The patient was properly identified, consented, and taken to the operating room where she was placed in the supine position. General endotracheal anesthesia was induced. SCDs and a safety belt were placed. Preoperative antibiotics were administered. The patient's abdomen was prepped and draped in the standard sterile fashion. A surgical timeout was performed and all parties were in agreement that this was the correct patient and procedure to be performed and we continued as planned. An incision was made superior and to the left of the umbilicus overlying the rectus muscle and the Veress needle was inserted. Saline drop test confirmed entry into the peritoneum. The abdomen was insufflated with carbon dioxide which the patient tolerated without incident. The abdomen was then entered using the Optiview technique and a 5 mm trocar. The laparoscope was inserted and no damage from initial trocar or Veress needle placement was noted, no gross abnormalities were noted within the 4 quadrants of the abdomen. An 11 mm port was placed in the subxiphoid position and two 5 mm ports were then placed in the right subcostal position. The patient was placed in reverse Trendelenburg position and rotated towards the left. The gallbladder was acutely inflamed and distended. The dome of the gallbladder was retracted towards the left upper quadrant and the infundibulum was retracted toward the right lower quadrant revealing Calot's triangle. Omental adhesions were taken down with blunt dissection. Peritoneal attachments were taken down with electrocautery and blunt dissection. The cystic duct and artery were circumferentially dissected. A window of safety was obtained showing the cystic duct entering the gallbladder with no aberrant structures noted. The cystic duct and artery were doubly clipped and divided. The gallbladder was then lifted off the gallbladder fossa with electrocautery. A posterior branch of the artery was clipped and divided. The gallbladder was placed in an Endo Catch bag and removed through the subxiphoid port site. The subxiphoid incision had to be extended slightly to accommodate the gallbladder. The gallbladder was opened while still in the bag and was suctioned to allow for decompression to remove it more easily. The bile was purulent and represented empyema of the gallbladder. None of this was spilled. There were also large stones. The right upper quadrant was irrigated and hemostasis was found to be good. 5 mm trochars were removed under direct visualization and the abdomen was allowed to collapse. The subxiphoid port site fascia was closed with 0 Vicryl suture using a closure device. The wound was irrigated, and the skin of all ports was closed with 4-0 Monocryl subcuticular sutures. Dermabond was placed over the wounds. The patient was extubated in the operating room and taken to the PACU where she recovered without apparent incident. All sponge, instrument and needle counts were correct at the conclusion of the procedure. The patient tolerated the procedure well. The physician's safety assistant was present and scrubbed for the entirety of the case and was essential in positioning the patient, prepping and draping, retraction and exposure, driving the laparoscope, removal of the gallbladder, closure the incisions, and placement of the dressings. I attest to the content of the Intraoperative Record and any orders documented therein. Any exceptions are noted below.
[2022-08-20] MEDS: fentaNYL citrate 100 MCG/2 ML VIAL IV PRN ×2 (15:16→15:24)
--- NOTE | 2022-08-20 15:23 | Electrocardiogram Report ---
Test Reason : Blood Pressure : / mmHG Vent. Rate : 064 BPM Atrial Rate : 064 BPM P-R Int : 200 ms QRS Dur : 092 ms QT Int : 372 ms P-R-T Axes : 043 080 025 degrees QTc Int : 383 ms Normal sinus rhythm with sinus arrhythmia Normal ECG When compared with ECG of 23-JUN-2018 15:53, No significant change was found Confirmed by Caleb Obrien ([id number]) on 08/20/2022 3:23:38 PM Referred By: REFERRED SELF Confirmed By:Caleb Obrien
[2022-08-20] MEDS ORDERED: oxyCODONE HCL IR 5 MG TAB (IMMEDIATE RELEASE) PO PRN ×2 (16:06)
[2022-08-20] MEDS ORDERED: diphenhydrAMINE 50 MG/ML VIAL IV PRN (16:06)
--- NOTE | 2022-08-20 17:32 | Anesthesiology Progress Note ---
Date of Service August 20, 2022 Anesthesia Post Procedure Vital Signs Vital Signs: Temp Pulse Pulse Pulse Resp BP BP 08/20/22 17:02 36.7 C 65 16 08/20/22 16:38 36.6 C 62 18 08/20/22 16:05 36.5 C 63 18 08/20/22 15:50 64 20 08/20/22 15:40 36.0 C L 61 16 08/20/22 15:30 66 15 08/20/22 15:20 67 22 08/20/22 15:10 67 14 08/20/22 15:04 36.0 C L 70 19 08/20/22 12:17 36.6 C 98 H 20 125/84 08/20/22 07:38 08/20/22 07:33 36.6 C 62 18 122/71 08/20/22 06:43 62 20 120/88 08/20/22 03:28 75 14 126/79 08/20/22 01:53 78 16 136/81 08/20/22 01:19 36.8 C 75 18 170/69 H BP Pulse Ox O2 Del Method O2 Flow Rate 08/20/22 17:02 128/83 93 Room Air 08/20/22 16:38 128/79 94 Room Air 08/20/22 16:05 119/64 98 Nasal Cannula 2 08/20/22 15:50 130/82 95 Nasal Cannula 2 08/20/22 15:40 115/75 96 Nasal Cannula 2 08/20/22 15:30 117/79 94 Oxymask 5 08/20/22 15:20 140/74 93 Oxymask 5 08/20/22 15:10 137/74 98 Oxymask 5 08/20/22 15:04 137/76 94 Oxymask 5 08/20/22 12:17 95 Room Air 08/20/22 07:38 Room Air 08/20/22 07:33 96 Room Air 08/20/22 06:43 94 Room Air 08/20/22 03:28 96 Room Air 08/20/22 01:53 96 Room Air 08/20/22 01:19 96 Room Air Pain Intensity Abdomen: Pain Intensity: 5 Transfer of Care Handoff Completed per policy Notes Mental Status: alert / awake / arousable Patient Amnestic to Procedure: Yes Nausea / Vomiting: adequately controlled Pain: adequately controlled Airway Patency, RR, SpO2: stable & adequate BP & HR: stable & adequate Hydration State: stable & adequate Anesthetic Complications: no major complications apparent
[2022-08-21] MEDS: cefOXitin 2,000 MG in DEXTROSE 5% 50 ML IV SCH ×2 (03:45→10:12)
[2022-08-21] MEDS: LACTATED RINGER'S 1,000 ML IV SCH (10:12)
--- NOTE | 2022-08-21 12:22 | Surgery Progress Note ---
Date of Service August 21, 2022 Assessment & Plan (1) Cholelithiasis: Plan: S/P lap tiffany, POD 1 pt is doing fine, pt wants to go home today, the post-op care instruction was given, F/U Dr. Cortes in 2 weeks, Admission and Anticipated Discharge Date Admission Date: August 20, 2022 Supervising Physician Co-Signing Physician Notes Patient seen and examined, labs and image reviewed, agree with above. 62-year-old female presented with postprandial right upper quadrant pain is been worsening over the past few weeks. On exam she is afebrile stable vitals. Tender to palpation in the right upper quadrant though her pain is slightly improved from overnight. Labs unremarkable. Ultrasound showed mobile gallstone in the neck with a distended gallbladder which could represent cholecystitis. After discussion with the patient she elected for laparoscopic cholecystectomy. plan for laparoscopic cholecystectomy with possible cholangiogram risks discussed to include but not limited to bleeding, infection, retained stone, bile leak, open surgery, damage to surrounding structures including bile duct, need for future or more extensive surgery, failure to treat symptoms, and risks of anesthesia. Potential discharge this afternoon versus tomorrow Wound care instructions and activity striction's reviewed, return precautions given Subjective F/U S/P lap tiffany, POD 1 pt is doing fine, tolerated diet, no nausea, no vomiting, no fever, good control incision pain, Physical Exam Constitutional: WD/WN, vitals as above Eyes: PERRL, conjunctivae normal, anicteric sclerae Neck: trachea midline, no thyromegaly Respiratory: normal respiratory effort, lungs clear to auscultation Cardiovascular: RRR, no murmur, no edema Gastrointestinal (Abdomen): soft, mild tenderness at incision sites , no rebound pain, no distend, all incisions intact, no redness, BS +, Musculoskeletal: no cyanosis or clubbing, extremities motor strength 5/5 Neurologic: patellar DTR's 2+ bilat, sensation intact Psychiatric: A+Ox3, euthymic affect Results & Data ([facility]) Vital Signs (Past 12 Hours) Vital Signs Temp Pulse Resp BP Pulse Ox O2 Del Method 08/21/22 07:23 36.6 C 60 14 131/72 94 Room Air 08/21/22 04:02 36.7 C 68 18 111/66 95 Room Air
--- NOTE | 2022-08-27 19:27 | Discharge Summary ---
Date of Service August 27, 2022 Admission HPI Per Admitting Provider This is a 62-year-old female who presented to [facility] emergency department secondary to abdominal pain. The patient notes that for approximately 2 months she has been having on and off abdominal pain that usually occurs several hours after eating a meal. She says it usually occurs in the evening after she goes to bed. She notes that the pain is usually located in the right upper quadrant but usually self resolves. Last evening the patient ate some [place] fries and a chicken wrap and developed that the same type of abdominal pain described above. She does note however that this time the pain did not self resolve and was much worse. She had associated nausea and vomiting. She denied any fevers, shakes, or chills. She does note that she has had abdominal surgeries in the form of a tubal ligation but no other prior abdominal surgeries. With her current pain she does not note any radiation of the pain she also does not note any modifying factors. In the emergency department the patient had labs and imaging which I independently reviewed. A gallbladder ultrasound was performed that showed patient had a hydropic gallbladder with a gallstone impacted in the gallbladder neck. There is no gallbladder wall thickening or pericholecystic fluid. Labs including CBC were white blood cell count, hemoglobin, hematocrit, platelet count were all normal. Chemistry profile showed sodium and potassium are normal. BUN was also normal but creatinine had a slight elevation at 1.21. Total bilirubin, transaminases, alkaline phosphatase, and lipase were all not elevated. Urinalysis did have positive nitrites and 3+ leukocyte Estrace and greater than 30 white blood cells per high-power field. There is 4+ bacteria on the study. A COVID test was negative. A chest x-ray was performed that showed no evidence of pneumothorax or pneumonia. An EKG was performed that showed normal sinus rhythm without changes indicative of acute ischemia. Concerning past medical history the patient denies any medical problems. She notes that she does not take any medicines and does not have any allergies. The patient does note that she is a current smoker. She says that she can walk up and down 1 flight of steps without any chest pain or shortness of breath. At the time of my interview the patient was resting comfortably in bed and she was in no distress. Discharge Data Consultations 08/20/22 03:53 Consult General Surgery Stat Procedures Performed Operation Date: 08/20/22 11:55 Actual Procedures p Laparoscopic Cholecystectomy - Giovani Medrano DO, FACS Hospital Course (1) Impacted gallstone of gallbladder: This is a 62-year-old female who was admitted to [facility] on 08/20/2022 secondary to abdominal pain. Patient's clinical history was concerning for biliary colic and the patient did undergo an ultrasound at time of presentation to the emergency department where patient was noted to have cholelithiasis with concern for impacted gallstone. Patient was therefore admitted to the hospital and taken the operating room the day following admission where she underwent a laparoscopic cholecystectomy Dr. Medrano. Thien lynne reserved in the hospital additional day due to for pain control she was ultimately discharged home on 08/21/2022. She was instructed on appropriate wound care, diet, and activity. She was told to follow-up with Dr. Medrano in the office in approximately 1 to 2 weeks. Coding Level of Care Code None Diagnoses Impacted gallstone of gallbladder K80.20
== END 2022-08-21 13:56 | disposition home or self-care (01) | DRG 418 ==
LOC: ED 01:09 → 3N 04:20 → INTOOBSV 04:20 → 3N 06:43